=== PATIENT | female | born 1940 | race Caucasian/White ===

== ENCOUNTER 2023-08-13 12:43 | Inpatient (IN) | payer OTHER ==
[2023-08-13] MEDS ORDERED: PANTOPRAZOLE SODIUM 40 MG VIAL ONE (13:49)
[2023-08-13 13:51] LABS: BASO % 0.7 % (0-2.0); EOS % 1.6 % (0-4.5); HEMATOCRIT 37.2 % (32.4-45.2); HEMOGLOBIN 12.2 GM/dL (10.7-15.3); LYMPH % 14.7 % (8-40); MCHC 32.8 g/dl (32.0-36.0); MEAN CELL VOLUME 88.4 fl (80-96); MEAN PLT VOLUME 7.5 fl (7.5-11.1); MONO % 6.9 % (3.8-10.2); NEUT % 76.1 % (42.8-82.8); PLATELET COUNT 224 10^3/uL (134-434); RBC 4.21 M/mm3 (3.60-5.2); WHITE BLOOD COUNT 6.4 K/mm3 (4.0-10.0)
[2023-08-13 13:58] LABS: INR 1.39 (0.83-1.09); PROTHROMBIN TIME (PATIENT) 16.1 SEC (9.7-13.0)
[2023-08-13] MEDS: PANTOPRAZOLE SODIUM 40 MG VIAL IVPUSH ONE (13:59)
[2023-08-13] MEDS: LACTATED RINGERS SOLUTION 1000 ML INFUS.BAG IV ONE (13:59)
[2023-08-13 14:01] LABS: ACTIVATED PTT 30.9 SECONDS (25.2-36.5)
[2023-08-13 14:19] LABS: POTASSIUM 3.9 mmol/L (3.5-5.1)
[2023-08-13 14:21] LABS: ALBUMIN 2.6 g/dl (3.4-5.0); BLOOD UREA NITROGEN 23.1 mg/dL (7-18); CALCIUM 9.4 mg/dL (8.5-10.1); MAGNESIUM 1.8 mg/dL (1.8-2.4)
[2023-08-13 14:24] LABS: CREATININE 0.8 mg/dL (0.55-1.3); PHOSPHOROUS 3.1 mg/dL (2.5-4.9)
[2023-08-13 14:26] LABS: BILIRUBIN,TOTAL 0.6 mg/dL (0.2-1); TOT PROT 6.6 g/dl (6.4-8.2)
[2023-08-13 15:32] LABS: BASO % 0.4 % (0-2.0); EOS % 1.7 % (0-4.5); HEMATOCRIT 36.3 % (32.4-45.2); HEMOGLOBIN 11.8 GM/dL (10.7-15.3); LYMPH % 17.3 % (8-40); MCHC 32.5 g/dl (32.0-36.0); MEAN CELL VOLUME 89.3 fl (80-96); MEAN PLT VOLUME 7.7 fl (7.5-11.1); MONO % 7.2 % (3.8-10.2); NEUT % 73.4 % (42.8-82.8); PLATELET COUNT 213 10^3/uL (134-434); RBC 4.06 M/mm3 (3.60-5.2); RDW 14.8 % (11.6-15.6); WHITE BLOOD COUNT 5.8 K/mm3 (4.0-10.0)
[2023-08-13] MEDS: DEXTROSE 5%-NORMAL SALINE 1,000 ML IV SCH (21:50)
[2023-08-13 21:51] LABS: HEMATOCRIT 38.4 % (32.4-45.2); HEMOGLOBIN 12.5 GM/dL (10.7-15.3); MCH 29.1 pg (25.7-33.7); MCHC 32.6 g/dl (32.0-36.0); MEAN CELL VOLUME 89.4 fl (80-96); MEAN PLT VOLUME 7.5 fl (7.5-11.1); PLATELET COUNT 205 10^3/uL (134-434); RDW 14.9 % (11.6-15.6); WHITE BLOOD COUNT 5.1 K/mm3 (4.0-10.0)
[2023-08-13] MEDS ORDERED: PANTOPRAZOLE SODIUM 40 MG VIAL IVPUSH SCH (22:00)
[2023-08-13 22:11] LABS: EPI CELLS 20 /uL (0-25.1); HYALINE CASTS 3 /uL (0-3.1); URINE APPEARANCE TURBID; URINE BILIRUBIN NEGATIVE (NEGATIVE); URINE COLOR ORANGE; URINE GLUCOSE (UA) NEGATIVE (NEGATIVE); URINE KETONE TRACE (NEGATIVE); URINE LEUK ESTERASE 2+ (NEGATIVE); URINE NITRITE NEGATIVE (NEGATIVE); URINE PROTEIN 2+ (NEGATIVE); URINE RBC 9810 /uL (0-23.9); URINE WBC 4995 /uL (0-25.8)
[2023-08-13 22:46] LABS: URINE BACTERIA 6256.2 /uL (0-1359)
[2023-08-14 05:22] VITALS: BMI 13.7
[2023-08-14] MEDS: PANTOPRAZOLE SODIUM 40 MG VIAL IVPUSH SCH (10:05)
[2023-08-14 10:18] LABS: BASO % 0.5 % (0-2.0); EOS % 1.1 % (0-4.5); HEMATOCRIT 34.5 % (32.4-45.2); HEMOGLOBIN 11.2 GM/dL (10.7-15.3); MCH 28.5 pg (25.7-33.7); MCHC 32.4 g/dl (32.0-36.0); MEAN PLT VOLUME 7.6 fl (7.5-11.1); NEUT % 76.4 % (42.8-82.8); PLATELET COUNT 203 10^3/uL (134-434); RBC 3.92 M/mm3 (3.60-5.2); RDW 15.1 % (11.6-15.6); WHITE BLOOD COUNT 3.6 K/mm3 (4.0-10.0)
[2023-08-14 10:39] LABS: POTASSIUM 3.6 mmol/L (3.5-5.1)
[2023-08-14 10:45] LABS: BLOOD UREA NITROGEN 18.6 mg/dL (7-18); CALCIUM 8.5 mg/dL (8.5-10.1)
[2023-08-14 10:49] LABS: CREATININE 0.8 mg/dL (0.55-1.3)
[2023-08-14] MEDS: METOPROLOL TARTRATE 25 MG TABLET (FP) PO SCH (10:56)
[2023-08-14] MEDS: LISINOPRIL 5 MG TABLET PO ONE (10:56)
[2023-08-14] MEDS: amLODIPine BESYLATE 5 MG TABLET (FP) PO SCH (10:57)
[2023-08-14] MEDS: VITAMINS A AND D TOPICAL OINTMENT 60 GM TUBE TP SCH (11:13)
[2023-08-14] MEDS: CEFTRIAXONE 1 GM in DEXTROSE 5%-WATER - 50 ML IVPB ONE (12:51)
[2023-08-14] MEDS: ACETAMINOPHEN 1000 MG/100 ML BAG IVPB PRN (14:04)
[2023-08-14] MEDS: ATORVASTATIN CA 40 MG TABLET (FP) PO SCH (21:52)
[2023-08-14] MEDS: MIRTAZAPINE 15 MG TABLET (FP) PO SCH (21:54)
[2023-08-14 22:01] VITALS: RESP 20
[2023-08-15] MEDS: CEFTRIAXONE 1 GM in DEXTROSE 5%-WATER - 50 ML IVPB SCH (13:32)
[2023-08-16] MEDS: ACETAMINOPHEN 325 MG TABLET (FP) PO PRN (11:18)
[2023-08-16 11:26] LABS: HEMATOCRIT 34.9 % (32.4-45.2); HEMOGLOBIN 11.4 GM/dL (10.7-15.3); MCH 29.4 pg (25.7-33.7); MCHC 32.8 g/dl (32.0-36.0); MEAN CELL VOLUME 89.7 fl (80-96); PLATELET COUNT 168 10^3/uL (134-434); RDW 15.8 % (11.6-15.6); WHITE BLOOD COUNT 2.5 K/mm3 (4.0-10.0)
[2023-08-16] MEDS: FLU VACCINE (FLULAVAL) PF 60 MCG/0.5 ML SYRINGE 2023-2024 IM ONE (20:17)
[2023-08-17 07:13] VITALS: BP 132/78; PULSE 78; TEMP 98.4
[2023-08-17] MEDS: PANTOPRAZOLE 40 MG TABLET PO SCH (09:04)
== END 2023-08-17 12:06 | DRG 378 ==
LOC: JER 12:43 → INTOOBSV 17:39 → JERBED 17:39 → J5S 08-14 03:41 → OBSVTOIN 08-14 14:42
PROVIDERS: ADMIT Internal Medicine; ATTEND Internal Medicine
DX: K92.0 Hematemesis (principal); E44.0 Moderate protein-calorie malnutrition; N39.0 Urinary tract infection, site not specified; I48.20 Chronic atrial fibrillation, unspecified; I10 Essential (primary) hypertension; E78.5 Hyperlipidemia, unspecified; B96.4 Proteus (mirabilis) (morganii) as the cause of diseases classified elsewhere; K21.9 Gastro-esophageal reflux disease without esophagitis; K44.9 Diaphragmatic hernia without obstruction or gangrene; F03.90 Unspecified dementia, unspecified severity, without behavioral disturbance, psychotic disturbance, mood disturbance, and anxiety; E55.9 Vitamin D deficiency, unspecified; Z68.21 Body mass index [BMI] 21.0-21.9, adult; Z86.711 Personal history of pulmonary embolism; Z86.718 Personal history of other venous thrombosis and embolism
CPT/HCPCS: 0241U-QW; 36415; 71045-TC-FY; 74177-TC; 80048; 80053; 81003; 82272; 82550; 83735; 84100; 84484; 85025; 85027; 85610; 85730; 86850; 86900; 86901; 87086; 87186; 87635; 90686; 93005; 93010; 93306-TC; 99285-25; G0008; G0378; J0131; Q9967

== ENCOUNTER 2025-03-27 17:46 | Inpatient (IN) | payer OTHER ==
[2025-03-27 18:57] LABS: MCHC 29.2 g/dl (32.2-35.5); MEAN CELL VOLUME 79.4 fl (79.4-94.8); MEAN PLT VOLUME 9.3 fl (9.4-12.3); RDW 14.7 % (12.5-17.0)
[2025-03-27 19:57] LABS: GLUCOSE,RANDOM 117 mg/dL (74-106)
[2025-03-27 19:58] LABS: TOT PROT 7.1 g/dl (6.4-8.2)
[2025-03-27 20:00] LABS: ALK PHOS 68 U/L (40-150)
[2025-03-27 20:03] LABS: CREATININE 0.77 mg/dL (0.55-1.3); SGOT/AST 28 U/L (5-34); SGPT/ALT 9 U/L (0-55)
[2025-03-27 20:14] LABS: CO2 25 mmol/L (21-32)
[2025-03-27] MEDS: SODIUM CHLORIDE 500 ML IV STA (23:57)
[2025-03-28] MEDS ORDERED: METOPROLOL TARTRATE 5 MG/5 ML VIAL ONE (00:34)
[2025-03-28] MEDS: METOPROLOL TARTRATE 5 MG/5 ML VIAL IVPUSH ONE (00:46)
[2025-03-28] MEDS ORDERED: METOPROLOL TARTRATE 25 MG TABLET (FP) ONE (01:31)
[2025-03-28] MEDS ORDERED: diazePAM CARPU-JECT 10 MG/2 ML DISP.SYRIN ONE (01:31)
[2025-03-28] MEDS: diazePAM CARPU-JECT 10 MG/2 ML DISP.SYRIN IVPUSH ONE (01:43)
[2025-03-28] MEDS: METOPROLOL TARTRATE 25 MG TABLET (FP) PO ONE (02:00)
[2025-03-28] MEDS ORDERED: ACETAMINOPHEN 325 MG TABLET (FP) PO PRN (02:22)
[2025-03-28 04:32] VITALS: BMI 21.9
[2025-03-28 08:22] LABS: ABSOLUTE IMMATURE GRANULOCYTES 0.02 x10^3/uL (0.0-0.031); BASOPHILS # 0.05 x10^3/uL (0.01-0.08); EOSINOPHIL % 3.1 % (0.7-5.8); EOSINOPHILS # 0.18 x10^3/uL (0.04-0.36); MCHC 29.5 g/dl (32.2-35.5); MEAN CELL VOLUME 80.4 fl (79.4-94.8); MEAN PLT VOLUME 9.9 fl (9.4-12.3); MONOCYTE # 0.49 x10^3/uL (0.24-0.86); MONOCYTE % 8.5 % (4.7-12.5); RDW 14.8 % (12.5-17.0)
[2025-03-28 08:44] LABS: GLUCOSE,RANDOM 94.0 mg/dL (74-106); TOT PROT 6.1 g/dl (6.4-8.2)
[2025-03-28 08:45] LABS: CO2 26.0 mmol/L (21-32)
[2025-03-28 08:47] LABS: ALK PHOS 60.0 U/L (40-150)
[2025-03-28 08:50] LABS: CREATININE 0.82 mg/dL (0.55-1.3); SGOT/AST 21.0 U/L (5-34); SGPT/ALT 6.0 U/L (0-55)
[2025-03-28] MEDS: METOPROLOL TARTRATE 50 MG TABLET (FP) PO SCH (09:54)
[2025-03-28] MEDS ORDERED: METOPROLOL TARTRATE 25 MG TABLET (FP) PO SCH (10:00)
[2025-03-28] MEDS: RIVAROXABAN 15 MG TABLET PO SCH (17:41)
[2025-03-28] MEDS ORDERED: RIVAROXABAN 20 MG TABLET PO SCH (18:00)
[2025-03-28] MEDS: FAMOTIDINE 20 MG TABLET PO SCH (21:40)
[2025-03-28] MEDS: ATORVASTATIN CA 20 MG TABLET (FP) PO SCH (21:40)
[2025-03-30 08:26] LABS: MCHC 28.8 g/dl (32.2-35.5); MEAN CELL VOLUME 81.2 fl (79.4-94.8); MEAN PLT VOLUME 9.6 fl (9.4-12.3); RDW 14.9 % (12.5-17.0)
[2025-03-30 09:01] LABS: GLUCOSE,RANDOM 81.0 mg/dL (74-106)
[2025-03-30 09:03] LABS: CO2 25.0 mmol/L (21-32)
[2025-03-30 09:07] LABS: CREATININE 0.93 mg/dL (0.55-1.3)
[2025-03-30] MEDS: hydrALAZINE HCL 25 MG TABLET (FP) PO PRN (18:27)
[2025-03-31 10:45] VITALS: BP 110/68; PULSE 84; RESP 18; TEMP 98.2
== END 2025-03-31 10:53 | DRG 309 ==
LOC: JER 17:46 → JERBED 03-28 01:18 → J6W TELE 03-28 03:50
PROVIDERS: ADMIT Hospitalist; ATTEND Internal Medicine
DX: I48.21 Permanent atrial fibrillation (principal); I69.354 Hemiplegia and hemiparesis following cerebral infarction affecting left non-dominant side; I10 Essential (primary) hypertension; F31.9 Bipolar disorder, unspecified; D64.9 Anemia, unspecified; I69.391 Dysphagia following cerebral infarction; E78.5 Hyperlipidemia, unspecified; K21.9 Gastro-esophageal reflux disease without esophagitis
CPT/HCPCS: 36415; 70450-TC; 71046-TC-FY; 72125-TC; 73521-TC-FY; 80048; 80053; 82550; 83036; 83735; 84100; 84439; 84443; 84484; 85025; 85027; 86850; 86900; 86901; 93005; 93010; 93306-TC; 99285-25